=== PATIENT | male | born 1960 | race American Indian/Alaskan Native ===

== ENCOUNTER 2020-12-23 08:00 | Day surgery (SDC) | payer OTHER ==
[~2020-12-23 08:00] MED LIST: Lactated Ringers 1,000 ML IV SCH; Sodium Chloride 0.9% 10 ML SDV IV PRN; Sodium Chloride 0.9% 10 ML Syringe FLUSH PRN; Sodium Chloride 0.9% 2.5 ML Syringe FLUSH PRN
--- NOTE | 2020-12-23 09:53 | PCM.PREANE ---
Preanesthetic Assessment - Procedure Proposed Procedure: EGD, Colonoscopy - Anesthesia/Transfusion/Family Hx Anesthesia History: Prior Anesthesia Without Reaction Other Type of Anesthesia Reaction Comment: Denies any known family history of problems Family History of Anesthesia Reaction: No Transfusion History: No Prior Transfusion(s) - Review of Systems General: No Symptoms Pulmonary: No Symptoms (Smokesw cigars) Cardiovascular: No Symptoms (CAD, S/P Cath with Stent placement 04/10, Denies sxs since, HTN, HLD) Gastrointestinal: No Symptoms (GERD-well controlled) Neurological: No Symptoms Other: Reports: None (On plavix stopped 12/19) - Physical Assessment NPO Status Date: 12/21/20 NPO Status Time: 22:00 (Solids, >6Hr Liq) Vital Signs: Last Vital Signs Temp 96.4 F L 12/23/20 09:21 Pulse 67 12/23/20 09:21 Resp 16 12/23/20 09:21 BP 163/89 H 12/23/20 09:21 Pulse Ox 96 12/23/20 09:21 Height: 5 ft 10 in Weight: 108.862 kg (Obesity) ASA Class: 3 Mental Status: Alert & Oriented x3 Airway Class: Mallampati = 3 Dentition: Reports: Missing Tooth/Teeth Thyro-Mental Finger Breadths: 3 Mouth Opening Finger Breadths: 3 ROM/Head Extension: Full Lungs: Clear to Auscultation, Normal Respiratory Effort Cardiovascular: Regular Rate, Regular Rhythm - Lab Values: Laboratory Last Values SARS-CoV-2 RNA (JEYSON) NEGATIVE (NEGATIVE) 12/23/20 08:15 - Allergies Allergies/Adverse Reactions: Allergies Allergy/AdvReac Type Severity Reaction Status Date / Time No Known Allergies Allergy Verified 12/18/20 11:45 - Anesthesia Plan Beta Petra: Metoprolol Med Last Dose Date: 12/22/20 Med Last Dose Time: 22:00 - Acknowledgements Anesthesia Type Planned: General Anesthesia Pt an Appropriate Candidate for the Planned Anesthesia: Yes Alternatives and Risks of Anesthesia Discussed w Pt/Guardian: Yes Pt/Guardian Understands and Agrees with Anesthesia Plan: Yes PreAnesthesia Questionnaire HEENT History: Reports: Other (See Below) Other HEENT History: uses reading glasses Cardiovascular History: Reports: CAD, High Cholesterol, Hypertension, Stents Respiratory History: Reports: Other (See Below) Other Respiratory History: some asthma symptoms since he had Covid- uses an inhaler daily Gastrointestinal History: Reports: GERD, Helicobacter Pylori, Other (See Below) Other Gastrointestinal History: his thought he had Hepatitis in the past from "bad water"- but he has been told he is "cleared" Genitourinary History: Reports: None Musculoskeletal History: Reports: Arthritis, Back Pain, Chronic Neurological History: Reports: None Psychiatric History: Reports: Anxiety Endocrine/Metabolic History: Reports: Obesity/BMI 30+ Hematologic History: Reports: None Oncologic (Cancer) History: Reports: None Dermatologic History: Reports: Other (See Below) Other Dermatologic History: currently has a fungus infection on his abdomen - Past Surgical History Head Surgeries/Procedures: Reports: None HEENT Surgical History: Reports: LASIK, Oral Surgery Other HEENT Surgeries/Procedures: removal of "lump" from tongue Cardiovascular Surgical History: Reports: Coronary Artery Stent Other Cardiovascular Surgeries/Procedures: Angioplasty - 2 stents placed GI Surgical History: Reports: Colonoscopy, EGD Male Surgical History: Reports: None Endocrine Surgical History: Reports: None Neurological Surgical History: Reports: None Musculoskeletal Surgical History: Reports: None - SUBSTANCE USE Tobacco Use Status *Q: Current Some Day Tobacco User Tobacco Use Within Last Twelve Months: Cigars Recreational Drug Use History: No - HOME MEDS Home Medications: Home Meds Aspirin [Adult Low Dose Aspirin EC] 81 mg PO DAILY 12/18/20 [History] Clopidogrel Bisulfate [Plavix] 75 mg PO DAILY 12/18/20 [History] Fluticasone Propionate [Flovent HFA 110 MCG] 1 puff INH BID 12/18/20 [History] Isosorbide Mononitrate [Isosorbide Mononitrate ER] 60 mg PO BEDTIME 12/18/20 [History] Metoprolol Succinate 25 mg PO BEDTIME 12/18/20 [History] Multivitamin 1 tab PO DAILY 12/18/20 [History] Nitroglycerin 0.4 mg SL ASDIRECTED PRN MDD 3 doses 12/18/20 [History] Omeprazole 20 mg PO DAILY 12/18/20 [History] atorvaSTATin Calcium [Atorvastatin Calcium] 80 mg PO DAILY 12/18/20 [History] - CURRENT (IN HOUSE) MEDS Current Meds: Current Medications Lactated Ringer's (Ringers, Lactated) 1,000 mls @ 125 mls/hr IV ASDIRECTED LEON Last Admin: 12/23/20 09:30 Dose: 125 mls/hr Documented by: Sodium Chloride (Sodium Chloride 0.9% 10 Ml Syringe) 10 ml FLUSH ASDIRECTED PRN PRN Reason: Keep Vein Open Sodium Chloride (Sodium Chloride 0.9% 2.5 Ml Syringe) 2.5 ml FLUSH ASDIRECTED PRN PRN Reason: Keep Vein Open Sodium Chloride (Sodium Chloride 0.9% 10 Ml Syringe) 10 ml FLUSH ASDIRECTED PRN PRN Reason: Keep Vein Open Sodium Chloride (Sodium Chloride 0.9% 2.5 Ml Syringe) 2.5 ml FLUSH ASDIRECTED PRN PRN Reason: Keep Vein Open Sodium Chloride (Sodium Chloride 0.9% 10 Ml Sdv) 10 ml IV ASDIRECTED PRN PRN Reason: IV Use
[2020-12-23] MEDS ORDERED: propofoL 50 ML ONE (10:45)
[2020-12-23] MEDS ORDERED: Benzocaine 20% Topical Spray UD ONE (10:54)
[2020-12-23] MEDS ORDERED: fentaNYL 100 MCG/2 ML SDV ONE (10:54)
[2020-12-23] MEDS ORDERED: Propofol 200 MG/20 ML SDV ONE ×2 (11:36→11:55)
--- NOTE | 2020-12-23 12:14 | PCM.POSTAN ---
POST ANESTHESIA ASSESSMENT - MENTAL STATUS Mental Status: Somnolent - VITAL SIGNS Vital Signs: Last Vital Signs Temp 96.4 F L 12/23/20 09:21 Pulse 67 12/23/20 09:21 Resp 16 12/23/20 09:21 BP 163/89 H 12/23/20 09:21 Pulse Ox 96 12/23/20 09:21 - RESPIRATORY Respiratory Status: Respiratory Rate WNL, Airway Patent, O2 Saturation Stable - CARDIOVASCULAR CV Status: Pulse Rate WNL, Blood Pressure Stable - GASTROINTESTINAL GI Status: No Symptoms - PAIN Free Text/Narrative:: Resting comfortably - POST OP HYDRATION Hydration Status: Adequate & Stable
--- NOTE | 2020-12-23 12:19 | PCM.OPNOTE ---
- General Post-Op/Procedure Note Date of Surgery/Procedure: 12/23/20 Operative Procedure(s): Diagnostic EGD and screening colonoscopy Findings: Cecal polyp, ascending colon polyp, transverse colon polyp, descending colon polyp x 2, sigmoid colon polyp x 2. gastritis Pre Op Diagnosis: History of colon polyps, history of h pylori gastritis Post-Op Diagnosis: Gastritis, ascending colon polyp, cecal polyp, transverse colon polyp, sigmoid colon polyp x 2, descending colon polyp x 2 Anesthesia Technique: MAC Primary Surgeon: Margaret Joseph Condition: Good
[2020-12-23 12:57] VITALS: BP 131/85; PULSE 57
--- NOTE | 2020-12-23 13:44 | PCM48HPAN ---
Post Anesthesia Note - EVALUATION WITHIN 48HRS OF ANESTHETIC Vital Signs in Normal Range: Yes Patient Participated in Evaluation: Yes Respiratory Function Stable: Yes Airway Patent: Yes Cardiovascular Function Stable: Yes Hydration Status Stable: Yes Pain Control Satisfactory: Yes Nausea and Vomiting Control Satisfactory: Yes Mental Status Recovered: Yes Vital Signs: Last Vital Signs Temp 97.3 F 12/23/20 12:45 Pulse 57 L 12/23/20 12:45 Resp 14 12/23/20 12:45 BP 131/85 12/23/20 12:45 Pulse Ox 94 L 12/23/20 12:45 - COMMENTS/OBSERVATIONS Free Text/Narrative:: Pt doing well post-op. VSS. No apparent anesthetic complications. Dr. Good Poon
--- NOTE | 2020-12-23 16:35 | OR ---
SURGEON: MARGARET JOSEPH MD DATE OF PROCEDURE: 12/23/2020 PREOPERATIVE DIAGNOSIS: History of Helicobacter pylori gastritis, history of colon polyps. POSTOPERATIVE DIAGNOSES: 1. Gastritis. 2. Hiatal hernia. 3. Cecal polyp. 4. Ascending colon polyp. 5. Transverse colon polyp. 6. Descending colon polyp x2. 7. Sigmoid colon polyp x2. PROCEDURE PERFORMED: Diagnostic esophagogastroduodenoscopy and screening colonoscopy. ENDOSCOPIST: Margaret Joseph MD ANESTHESIA: MAC. INSTRUMENT USED: Olympus endoscope and colonoscope. EXTENT OF THE EXAM: To the second portion of duodenum, to the cecum. PREPARATION: Good. LIMITATIONS: None. INDICATIONS FOR EXAMINATION: The patient is a 60-year-old male with a history of H pylori gastritis. He completed treatments, although his admits that he was not compliant with the antibiotic regimen. He continues to have heartburn-like symptoms and takes the PPI daily. He has a history of colon polyps and is due for a repeat colonoscopy. I explained the need for diagnostic EGD as well as a colonoscopy. I explained the procedure, expected perioperative course, and the risks. The patient verbalized understanding and wishes to proceed. PROCEDURE IN DETAIL: The patient was brought into the endoscopy suite and placed in the left lateral decubitus position. A time-out was completed verifying the patient's name, age, date of , allergies, and procedure to be performed. Monitored anesthesia care was induced and a bite block was placed in the patient's mouth. Face mask was used to provide oxygen throughout the procedure. After adequate sedation was achieved, a well-lubricated endoscope was placed in the patient's mouth and advanced under direct visualization to the second portion of duodenum. This appeared normal and a photograph was taken. The scope was then fully withdrawn while examining the color, texture, anatomy, and integrity of the mucosa of the upper GI tract. The duodenum appeared normal. The scope was brought into the stomach and a photograph taken of the pylorus and GE junction. The patient appeared to have a small hiatal hernia. The gastric mucosa diffusely appeared slightly inflamed. Biopsies were taken of the gastric antrum, body, and fundus and sent for histologic review and H pylori testing. There was no evidence of ulceration within the stomach. The scope was then brought into the distal esophagus. The patient did have a small hiatal hernia, and a photograph of this was taken. The Z-line appeared normal. There was no evidence of distal esophagitis. A biopsy was taken 1 cm above the Z-line and sent to pathology for histologic review. The remainder of the esophagus was free of pathology. The scope was removed and this portion of procedure terminated. A digital rectal exam was performed. This exam was within normal limits. A well-lubricated colonoscope was inserted in the rectum and advanced under direct visualization to the level of the cecum. The cecum was identified by both visual and anatomic landmarks. A photograph was taken of the cecal cap as well as the terminal ileum. I was unable to retroflex the scope within the cecum due to looping of the scope more proximally. The scope was fully withdrawn while examining the color, texture, anatomy, and integrity of mucosa from the cecum to the anal canal. The patient was noted to have multiple polyps throughout the colon. These were all small and sessile and able to be removed in piecemeal fashion using a cold biopsy forceps. There was 1 polyp in the cecum, 1 in the ascending colon, 1 in the transverse colon, 2 in the descending colon, and 2 in the sigmoid colon. The scope was brought into the rectum and retroflexed to allow visualization of the anal canal opening. This appeared normal and a photograph taken. The scope was straightened out and fully withdrawn. The cecum to anus time was 34 minutes. The patient tolerated the procedure well and was transferred to PACU in stable condition. ENDOSCOPIC DIAGNOSES: 1. Gastritis. 2. Hiatal hernia. 3. Cecal polyp. 4. Ascending colon polyp. 5. Transverse colon polyp. 6. Descending colon polyp x2. 7. Sigmoid colon polyp x2. RECOMMENDATIONS: Follow up in clinic in 2 weeks. SAUMYA SAAVEDRA /[id number]
== END 2020-12-23 13:30 | disposition home or self-care (01) ==
LOC: MW.SDS 08:00
PROVIDERS: ATTEND Surgery
DX: Z12.11 Encounter for screening for malignant neoplasm of colon (principal); K21.9 Gastro-esophageal reflux disease without esophagitis; D12.0 Benign neoplasm of cecum; D12.2 Benign neoplasm of ascending colon; D12.4 Benign neoplasm of descending colon; D12.3 Benign neoplasm of transverse colon; D12.5 Benign neoplasm of sigmoid colon; K44.9 Diaphragmatic hernia without obstruction or gangrene; K29.70 Gastritis, unspecified, without bleeding; F17.210 Nicotine dependence, cigarettes, uncomplicated; I25.10 Atherosclerotic heart disease of native coronary artery without angina pectoris; E78.00 Pure hypercholesterolemia, unspecified; I10 Essential (primary) hypertension; Z79.82 Long term (current) use of aspirin; K20.90 Esophagitis, unspecified without bleeding; Z01.812 Encounter for preprocedural laboratory examination; Z20.822 Contact with and (suspected) exposure to COVID-19; Z79.899 Other long term (current) drug therapy; Z98.890 Other specified postprocedural states; Z87.891 Personal history of nicotine dependence; Z86.19 Personal history of other infectious and parasitic diseases
CPT/HCPCS: 43239; 45380; 87635; 88305; 88342; A9270; J2704; J3010; J7120; 00813; U0002